=== PATIENT | female | born 1975 | race African-American/Black ===

== ENCOUNTER 2016-07-22 13:49 | Day surgery (SDC) | payer MEDICARE, BC ==
--- NOTE | ~2016-07-22 | OP ---
Record Of Operation [facility] [address] [place]. [address] NAME: SANDIP POST : 71 STATUS : [facility]#: [id number] AGE: 40 ADM/REG DATE : 07/22/16 MR#: [id number] REPORT SERV DATE: 07/23/16 DICTATED BY: ALEKSEY WU DATE: 07/22/16 REPORT STATUS : Draft TRANSCRIBED BY: MODL DATE: 07/22/16 DATE OF PROCEDURE: 07/22/2016 PREOPERATIVE DIAGNOSIS: Painful aneurysm, left brachiocephalic fistula. POSTOPERATIVE DIAGNOSIS: Painful aneurysm, left brachiocephalic fistula. PROCEDURE: Revision of AV fistula. SURGEON: Aleksey Wu M.D. ASSISANT: Neymar. ANESTHESIA: Local with sedation. COMPLICATIONS: None. BLOOD LOSS: 50. HISTORY: The patient is a 40-year-old female with a longstanding left brachiocephalic fistula. She has developed aneurysmal areas in two locations. The largest and most painful is in the distal upper arm. She was felt to benefit from revision of this area. This was discussed in detail with the patient. She expressed understanding and desired to proceed. PROCEDURE IN DETAIL: The patient was taken to the operating room and placed in the supine position. She was given IV sedation without complication. She was given 5000 units of heparin intravenously. The left arm was prepped and draped in sterile fashion. An incision was created over the aneurysm in the distal upper arm. A longitudinal incision was created after the tourniquet was inflated to 250 mmHg. Dissection was performed with Bovie cautery to free the large aneurysm circumferentially from the surrounding tissues. There was a fairly normal fistula proximal and distal to the aneurysmal area. Vascular clamps were placed on the normal areas. The tourniquet was deflated and no significant bleeding noted. The aneurysm was resected leaving a small beveled end to the proximal and distal aspect. This was then sewn together with running 4-0 Prolene suture. Upon completion, flow was restored. There was no significant bleeding. There was a weak flow into the fistula, however. An 11 blade was used to create a venotomy and a 4 Teddy passed into the proximal portion removing a small amount of clot, but in flow was still a bit poor. A hemostat was placed into the distal aspect towards the anastomosis and used to manually stretch, what was thought to be a stenosis. There was now strong pulsatile inflow in this location and no additional thrombus noted. The distal aspect was re-clamped and the venotomy closed with running 4-0 Prolene suture. Flow was restored. There was a strong Doppler bruit and palpable flow within the fistula now. Once hemostasis was assured, the subcutaneous tissue was closed with 3-0 Vicryl suture and the skin closed with multiple interrupted 2-0 Ethilon vertical mattress sutures. The patient had strong radial artery pulse at the wrist at the end as well. She will be taken to the recovery room and discharged home when stable. Record Of Operation [place] [id number] [facility] [place]. [address] NAME: SANDIP POST : 71 STATUS : [facility]#: [id number] AGE: 40 ADM/REG DATE : 07/22/16 MR#: [id number] REPORT SERV DATE: 07/23/16 DICTATED BY: ALEKSEY WU DATE: 07/22/16 REPORT STATUS : Draft TRANSCRIBED BY: WENDI DATE: 07/22/16 ANYI/WENDI Aleksey Wu M.D. / [id number] CC: Rosio Caputo TYE
[~2016-07-22 13:49] MED LIST: AMETHIA PO; COREG25 PO; DIOV160 PO; FOSRENOL PO; LEVOTHYROXIN75 MCG PO; LOP25 PO; RENVELA800 MG PO; SEASONIQUE OR; SENSIPAR30 MG OR; ZYRTEC ALLGY10 MG PO
[2016-07-22 14:22] LABS: BASOPHILS 0.3 %; BASOPHILS ABSOLUTE 0.03 10/3/uL (0.0-0.16); EOSINOPHILS 2.7 %; EOSINOPHILS ABSOLUTE 0.25 10/3/uL (0.0-0.53); IMMATURE GRANULOCYTES 0.1 %; IMMATURE GRANULOCYTES ABSOLUTE 0.01 10/3/uL (0.0-0.11); LYMPHOCYTES 29.1 %; LYMPHOCYTES ABSOLUTE 2.67 10/3/uL (0.67-4.30); MEAN CORPUS HGB CONC 31.6 g/dL (32.0-36.0); MEAN CORPUSCULAR HEMOGLOB 31.6 pg (26.0-34.0); MEAN PLATELET VOLUME 10.6 fL (9.2-13.0); MONOCYTES 6.1 %; MONOCYTES ABSOLUTE 0.56 10/3/uL (0.21-1.20); NEUTROPHILS 61.7 %; NEUTROPHILS ABSOLUTE 5.66 10/3/uL (2.02-8.40); PLATELET COUNT 271 10/3/uL (150-400); RBC DISTRIBUTION WIDTH 15.1 % (12.0-16.0); RED CELL COUNT 4.11 10/6/uL (4.0-5.6); WHITE BLOOD CELLS 9.2 10/3/uL (4.5-10.5)
[2016-07-22 14:25] LABS: HEMATOCRIT 41.1 % (36.0-48.0); MANUAL DIFF NO %
[2016-07-22 14:37] LABS: CALCIUM, SERUM 9.5 MG/DL (8.5-10.4); CHLORIDE, SERUM 98 MMOL/L (96-112); CO2 (CARBON DIOXIDE) 31 MMOL/L (24-34); GFR AFRICAN AMERICAN 7 ML/MIN (>=60); GFR NON AFRICAN AMERICAN 6 ML/MIN (>=60); GLUCOSE, SERUM 89 MG/DL (60-99); POTASSIUM, SERUM 4.7 MMOL/L (3.5-5.3); SODIUM, SERUM 141 MMOL/L (135-148)
[2016-07-22 14:38] LABS: BUN (BLOOD UREA NITROGEN) 51 MG/DL (6-23); CREATININE 7.48 MG/DL (0.55-1.02)
== END 2016-07-22 20:35 | disposition home or self-care (01) ==
LOC: SDC 13:49
PROVIDERS: Surgery
DX: T82.818A Embolism due to vascular prosthetic devices, implants and grafts, initial encounter (principal); I72.8 Aneurysm of other specified arteries; I77.0 Arteriovenous fistula, acquired; I12.0 Hypertensive chronic kidney disease with stage 5 chronic kidney disease or end stage renal disease; E66.01 Morbid (severe) obesity due to excess calories; D64.9 Anemia, unspecified; E03.9 Hypothyroidism, unspecified; E78.5 Hyperlipidemia, unspecified; N18.6 End stage renal disease; Z88.8 Allergy status to other drugs, medicaments and biological substances; Z79.899 Other long term (current) drug therapy
CPT/HCPCS: 36833; 80048; 84703; 85025; 93005; C1757; J0690; J2250; J2370; J3010; Q9967